=== PATIENT | female | born 1940 | race Caucasian/White ===

== ENCOUNTER → 2017-01-04 | Day surgery (SDC) | payer OTHER ==
[~2017-01-04] MED LIST: CALCIUM 500 + D1 TAB PO; HYDROCHLOROTHIA25 MG PO; LEVOTHYROXINE50 MCG PO; PRINIVIL40 MG PO
--- NOTE | ~2017-01-04 | EKG ---
PATIENT: VENKATA FERNANDEZ UNIT #: [id number] Ventricular Rate: 63 BPM Atrial Rate: 63 BPM P-R Interval: 166 ms QRS Duration: 92 ms Q-T Interval: 452 ms QTC Calculation(Bezet): 462 ms P [place]: 31 degrees Calculated R [place]: -11 degrees Calculated T [place]: 32 degrees Diagnosis Line: Sinus rhythm with occasional Premature ventricular Diagnosis Line: complexes Diagnosis Line: Otherwise normal ECG Diagnosis Line: When compared with ECG of 05-APR-2015 10:47, Diagnosis Line: Premature ventricular complexes are now Present Diagnosis Line: Confirmed by BRENDAN MCGUIRE MD ([id number]) on 01/05/2017 Diagnosis Line: 3:29:27 PM INTERPRETING MD: MAYNOR YODER
--- NOTE | ~2017-01-04 | CR227 ---
[facility] A Service [facility] RADIOLOGY TEXT RESULTS PATIENT: VENKATA FERNANDEZ LOCATION: [facility] : 38 UNIT #: [id number] AGE: [address]: Chris Hearn MD SEX: F ORDER DR: [id number] [facility] [address] [place], [place] [address] [id number] O MR#: [id number] Acc #: [id number] NAME: VENKATA FERNANDEZ. : 1940 SEX: F STUDY DATE/TIME: 01/04/2017 7:22 UNIT: [facility] ROOM: STUDY DESCRIPTION: CR Shoulder 1 View Rt Attending Physician: Chris Hearn M.D. Referring Physician: Chris Hearn M.D. Ordering Physician: Chris Hearn M.D. Primary Care Physician: Marisela Da Silva A.P.R.N. MEDICAL IMAGING REPORT This report is preliminary unless electronic signature is present EXAM Right shoulder - 3 C-arm images in the operating room 01/04/2017, 7:22 a.m. COMPARISON Right shoulder radiographs [facility] 01/02/2017 HISTORY C-arm record states closed reduction/then open, Dr. Bonilla. Shoulder dislocation. FINDINGS 3 intraoperative images demonstrate reduction of a glenohumeral dislocation. There is a large apparent Hill-Sachs impaction deformity, age-indeterminate. There is an equivocal calcification below the glenoid. Consider CT if clinically warranted. 0.3 minutes fluoroscopy time was utilized. IMPRESSION Reduced glenohumeral dislocation with probable large Hill-Sachs impaction deformity and equivocal calcification below the glenoid, raising the possibility of a Bankart fracture fragment. Consider CT as clinically warranted. Dictated by... Zarina Carbone M.D. THIS IS AN ELECTRONICALLY VERIFIED REPORT Zarina Carbone M.D. at 01/04/2017 2:01 PM [facility] A Service [facility] RADIOLOGY TEXT RESULTS PATIENT: VENKATA FERNANDEZ LOCATION: [facility] #: [id number] : 36 UNIT #: [id number] AGE: [address]: Chris Hearn MD SEX: F ORDER DR: TD: 01/04/2017 11:43 JOB #: [id number] MEDICAL IMAGING REPORT Page 1 of 1 COPY
--- NOTE | ~2017-01-04 | OR ---
Unit #: [id number] #: [id number] Patient: VENKATA FERNANDEZ [id number] [place], [place] [address] [id number] O MR#: [id number] NAME: VENKATA FERNANDEZ ROOM: Date of Procedure: 01/04/2017 Admission Date: 01/04/2017 Surgeon: Chris Hearn M.D. : 1940 Attending Physician: Chris Hearn M.D. Referring Physician: Chris Hearn M.D. Primary Care Physician: Marisela Da Silva A.P.R.N. OPERATIVE REPORT PREOPERATIVE DIAGNOSIS Right anterior glenohumeral dislocation. POSTOPERATIVE DIAGNOSIS Right anterior glenohumeral dislocation. PROCEDURE PERFORMED Right shoulder open reduction of dislocation. LAUNCH STEWARD Melecio Latham CFA. ANESTHESIA General with LMA. COMPLICATIONS None. SPECIMENS None. DRAINS None. SURGICAL IMPLANTS None. INDICATION FOR PROCEDURE Ms. Fernandez is a 76-year-old female, who presented to my office one day prior with a dislocated right shoulder. She apparently fell one week prior and had some shoulder pain. She had seen her primary doctor and x-rays were taken noting the dislocated shoulder. She presented to my office. It was felt that she would benefit from attempted closed reduction versus possible open. Risks, benefits, and alternatives were discussed with the patient. Informed consent was obtained. Risks include, but not limited to, infection, bleeding, nerve injury, blood clots, risks associated with anesthesia, persistent instability, need for further surgery, and possibly . DESCRIPTION OF PROCEDURE On 01/04/2017, the patient was seen in preoperative holding area, where her surgical site was marked. H and P and consent updated. She was taken Unit #: [id number] #: [id number] Patient: VENKATA FERNANDEZ to the operating room and provided general anesthesia. Using gentle traction on the arm and manipulating it, attempted reduction was performed. Fluoroscopy was brought in confirming that the shoulder was indeed still dislocated. At this point, it was felt that open reduction was warranted. As the room was prepped, I spoke with the patient's daughter about this and she agreed to proceed with open reduction. The patient then received preoperative antibiotics. The right shoulder was prepped and draped in typical sterile fashion. Time-out was performed confirming the correct surgical site and procedure. At this point, a 2 inch deltopectoral incision was made for anterior approach to the shoulder. The shoulder was noted to be anteriorly dislocated. The rotator interval was opened and I was able to place my finger into the joint and helped manually reduce the humerus back on the glenoid. There was a large Hill-Sachs lesion. With the arm externally rotated and abducted, the shoulder would sublux anteriorly. With the arm brought back down by the side, it would reduce. There was likely compromise of her superior rotator cuff. Fluoroscopy was brought in with the arm abducted confirming reduction of the joint. At this point, the wound was thoroughly irrigated. Interval was closed with 0 Vicryl suture followed by 2-0 Vicryl for subcutaneous tissue and a 3-0 running subcuticular skin stitch. Dermabond, Telfa, and Tegaderm were placed. The patient was placed into a sling with the arm at her side. She was subsequently awakened from general anesthesia in stable condition and taken to PACU postoperatively. POSTOPERATIVE PLAN The patient will be discharged home. She will remain on sling for one week. She can come out for showering. She will follow up in my office and further recommendations will follow. No complications were encountered during the surgical procedure. Dictated by... Chris Hearn M.D. MARTÍNEZ/raymond TD: 01/05/2017 03:18 JOB #: [id number] OPERATIVE REPORT Page 1 of 1 X X PROCEDURE OPERATIVE NOTE
[2017-01-04 07:23] LABS: BUN/CREATININE RATIO 24.44; CALCIUM SERUM 9.6 mg/dL (8.4-10.2); CREATININE SERUM 0.9 mg/dL (0.6-1.4); GLOM FILT RATE Estimated 61.3 mL/min (>60)
[2017-01-04 07:28] LABS: POTASSIUM 2.9 mmol/L (3.5-5.1)
== END | disposition home or self-care (01) ==
LOC: CSUR 05:57
PROVIDERS: Orthopaedic Surgery
DX: S43.014A Anterior dislocation of right humerus, initial encounter (principal); E03.9 Hypothyroidism, unspecified; I10 Essential (primary) hypertension; Z79.899 Other long term (current) drug therapy; Z86.73 Personal history of transient ischemic attack (TIA), and cerebral infarction without residual deficits; W19.XXXA Unspecified fall, initial encounter
CPT/HCPCS: 73020; 76001; 80048; 93005; J0330; J0690; J2250; J2370; J3010

== ENCOUNTER → 2017-02-20 | Outpatient (CLI) | payer OTHER ==
--- NOTE | ~2017-02-20 | MY11 ---
[facility] Service of [facility] RADIOLOGY TEXT RESULTS PATIENT: VENKATA FERNANDEZ LOCATION: [facility] : 38 UNIT #: [id number] AGE: [address]: Marisela Da Silva APRN SEX: F ORDER DR: [id number] [address] [address] [id number] P MR#: [id number] Acc #: [id number] NAME: VENKATA FERNANDEZ : 1940 SEX: F STUDY DATE/TIME: 02/20/2017 11:37 UNIT: [facility] ROOM: STUDY DESCRIPTION: MY Mammogram Screening Dig Jarvis Attending Physician: Marisela Da Silva A.P.R.N. Referring Physician: Marisela Da Silva A.P.R.N. Ordering Physician: Marisela Da Silva A.P.R.N. Primary Care Physician: Marisela Da Silva A.P.R.N. MEDICAL IMAGING REPORT This report is preliminary unless electronic signature is present. EXAM Digital screening mammogram 02/20/2017 HISTORY 76-year-old woman no risk elevation. Annual screen. COMPARISON Mammograms date to 08/27/2006 with most recent 01/24/2016. FINDINGS Digital imaging of each breast was completed utilizing screening protocol. Review includes FDA-approved CAD device. Breast parenchyma is partially fatty replaced. Bilateral calcifications with the characteristics of a secretory origin are again noted and stable. I see no interval occurring mass. There are no suspicious microcalcifications and no architectural deformity. IMPRESSION Stable benign mammogram. Annual screening recommended. Patients over the age of 40 are entered into a reminder system with target due date for the next mammogram. A result letter will also be sent to the patient. BIRADS: 2, benign findings. Dictated by... Ruel Jarrett M.D. THIS IS AN ELECTRONICALLY VERIFIED REPORT Ruel Jarrett M.D. at 02/20/2017 2:01 PM [facility] of [facility] RADIOLOGY TEXT RESULTS PATIENT: VENKATA FERNANDEZ LOCATION: [facility] : 38 UNIT #: [id number] AGE: [address]: Marisela Da Silva APRN SEX: F ORDER DR: LAURITA/rnr TD: 02/20/2017 13:16 JOB #: [id number] MEDICAL IMAGING REPORT Page 1 of 1
== END | disposition home or self-care (01) ==
LOC: SMAM 02-13 09:30
DX: Z12.31 Encounter for screening mammogram for malignant neoplasm of breast (principal)
CPT/HCPCS: G0202